=== PATIENT | female | born 1995 | race Caucasian/White ===

== ENCOUNTER 2024-07-25 07:30 | Inpatient (IN) | payer OTHER ==
[2024-07-25] MEDS ORDERED: AMPICILLIN SODIUM 2 GM VIAL ONE (09:58)
[2024-07-25] MEDS: LACTATED RINGERS SOLUTION 1,000 ML/1,000 ML INFUS.BAG IV SCH (10:00)
[2024-07-25] MEDS: AMPICILLIN - 2 GM in SODIUM CHLORIDE 100 ML IVPB ONE (10:15)
[2024-07-25 11:12] VITALS: BMI 31.7
[2024-07-25] MEDS ORDERED: FENTANYL/BUPIVACAINE/NS/PF - PCEA - 50 ML DISP.SYRIN EP ONE (12:40)
[2024-07-25] MEDS: FENTANYL/BUPIVACAINE/NS/PF - PCEA - 50 ML DISP.SYRIN EP SCH (13:00)
[2024-07-25] MEDS ORDERED: NALOXONE HCL 0.4 MG/ML VIAL IVPUSH PRN (13:03)
[2024-07-25] MEDS ORDERED: AMPICILLIN SODIUM 1 GM VIAL ONE (13:04)
[2024-07-25] MEDS ORDERED: OXYTOCIN 20 UNITS in 0.9% NS 20 UNIT/1,000 ML INFUS.BAG IV ONE (13:05)
[2024-07-25] MEDS: AMPICILLIN - 1 GM in SODIUM CHLORIDE 100 ML IVPB SCH (13:10)
[2024-07-25] MEDS ORDERED: BUPIVACAINE HCL/PF 0.25% (2.5MG/ML) 10 ML VIAL ONE (14:14)
[2024-07-25 14:56] LABS: BASO % 0.2 % (0-2.0); EOS % 0.1 % (0-4.5); HEMATOCRIT 38.3 % (32.4-45.2); HEMOGLOBIN 12.9 GM/dL (10.7-15.3); LYMPH % 8.5 % (8-40); MCH 30.7 pg (25.7-33.7); MCHC 33.6 g/dl (32.0-36.0); MEAN CELL VOLUME 91.4 fl (80-96); MEAN PLT VOLUME 7.4 fl (7.5-11.1); MONO % 2.9 % (3.8-10.2); NEUT % 88.3 % (42.8-82.8); PLATELET COUNT 298 10^3/uL (134-434); RBC 4.19 M/mm3 (3.60-5.2); RDW 12.9 % (11.6-15.6); WHITE BLOOD COUNT 12.6 K/mm3 (4.0-10.0)
[2024-07-25 15:06] LABS: ACTIVATED PTT 25.7 SECONDS (25.2-36.5); INR 0.95 (0.83-1.09); PROTHROMBIN TIME (PATIENT) 10.7 SEC (9.7-13.0)
[2024-07-25 15:23] LABS: POTASSIUM 3.5 mmol/L (3.5-5.1)
[2024-07-25 15:29] LABS: CREATININE 0.6 mg/dL (0.55-1.3)
[2024-07-25] MEDS ORDERED: LIDOCAINE HCL 1% PRESERVATIVE FREE - 30ML VIAL ONE (15:40)
[2024-07-25] MEDS: OXYTOCIN 20 UNITS in 0.9% NS 20 UNIT/1,000 ML INFUS.BAG IV SCH (16:19)
[2024-07-25 16:39] LABS: SYPHILIS W/ RPR CONF NON-REACTIVE (NONREACTIVE)
[2024-07-25 16:42] LABS: CORD BASE EXCESS -6.1 mmol/L (0-2); CORD BASE EXCESS -8.4 mmol/L (0-2); CORD HCO3 20.1 mmHg (20-29); CORD PCO2 41.5 mmHg (30-78); CORD PCO2 53.4 mmHg (30-78); CORD pH 7.194 (7.14-7.44); CORD pH 7.3 (7.14-7.44)
[2024-07-25] MEDS ORDERED: oxyCODONE HCL 5 MG TABLET PO PRN (16:59)
[2024-07-25] MEDS ORDERED: METHYLERGONOVINE MALEATE 0.2 MG/1 ML AMP IM PRN (16:59)
[2024-07-25] MEDS ORDERED: WITCH HAZEL 50% (TUCKS) 40 PAD/JAR PAD TP PRN (16:59)
[2024-07-25] MEDS ORDERED: BENZOCAINE 28 GM HEMORRHOIDAL OINTMENT TP PRN (16:59)
[2024-07-25] MEDS ORDERED: BISACODYL 10 MG SUPP.RECT RC PRN (16:59)
[2024-07-25] MEDS ORDERED: IBUPROFEN 600 MG TABLET (FP) PO ONE (20:19)
[2024-07-25] MEDS: IBUPROFEN 600 MG TABLET (FP) PO PRN (20:20)
[2024-07-26] MEDS: BENZOCAINE 20% 57 GM BOTTLE TP PRN (07:18)
[2024-07-26 08:03] LABS: BASO % 0.3 % (0-2.0); EOS % 0.6 % (0-4.5); HEMATOCRIT 31.7 % (32.4-45.2); HEMOGLOBIN 11.1 GM/dL (10.7-15.3); LYMPH % 17.9 % (8-40); MCH 31.9 pg (25.7-33.7); MEAN CELL VOLUME 91.1 fl (80-96); MEAN PLT VOLUME 7.4 fl (7.5-11.1); MONO % 5.3 % (3.8-10.2); NEUT % 75.9 % (42.8-82.8); PLATELET COUNT 252 10^3/uL (134-434); RBC 3.48 M/mm3 (3.60-5.2); RDW 12.6 % (11.6-15.6); WHITE BLOOD COUNT 10.5 K/mm3 (4.0-10.0)
[2024-07-26] MEDS: PRENATAL VITAMINS W/ FOLIC ACID TABLET (FP) PO SCH (10:04)
[2024-07-26] MEDS: ACETAMINOPHEN 325 MG TABLET (FP) PO PRN (10:04)
[2024-07-26] MEDS: SENNOSIDES/DOCUSATE COMBO (SENNA PLUS) TABLET (UD) PO PRN (21:31)
[2024-07-27 09:57] VITALS: BP 107/68; PULSE 60; RESP 18; TEMP 92.2
== END 2024-07-27 12:10 | disposition home or self-care (01) | DRG 560 ==
LOC: JDEL 07:30 → JLDR 09:05 → J3W 20:30
PROVIDERS: ADMIT Obstetrics & Gynecology; ATTEND Obstetrics & Gynecology
PROC: 10E0XZZ Delivery of Products of Conception, External Approach (ICD-10-PCS; principal; 2024-07-25)
PROC: 0KQM0ZZ Repair Perineum Muscle, Open Approach (ICD-10-PCS; 2024-07-25)
DX: O99.824 Streptococcus B carrier state complicating childbirth (principal); O70.1 Second degree perineal laceration during delivery; Z3A.39 39 weeks gestation of pregnancy; Z37.0 Single live birth
CPT/HCPCS: 36415; 36600; 59025; 59409; 80048; 82803; 85025; 85610; 85730; 86780; 86803; 86850; 86900; 86901